=== PATIENT | female | born 1985 | race African-American/Black ===

== ENCOUNTER → 2017-03-23 | Outpatient (CLI) | payer MEDICAID | END | disposition home or self-care (01) | LOC: US 11:00 | DX: O26.892 Other specified pregnancy related conditions, second trimester (principal); G93.89 Other specified disorders of brain; Z3A.19 19 weeks gestation of pregnancy ==

== ENCOUNTER 2017-04-12 14:12 | Emergency (ER) | payer MEDICAID ==
[~2017-04-12] VITALS: Ht 160 cm; Wt 108.0 kg
[2017-04-12 15:09] LABS: BILIRUBIN NEGATIVE (NEGATIVE); BLOOD NEGATIVE (NEGATIVE); CLARITY CLEAR (CLEAR); COLOR YELLOW (YELLOW); GLUCOSE NEGATIVE (NEGATIVE); KETONE NEGATIVE (NEGATIVE); LEUKO ESTERASE 2+ (NEGATIVE); NITRITE NEGATIVE (NEGATIVE); PH 6.5 (5.0-9.0); SPECIFIC GRAVITY <= 1.005 (1.005-1.030); UROBILINOGEN 0.2 E.U./dl (0.2-1.0)
[2017-04-12 15:20] LABS: BACTERIA 3+; EPITHELIAL CELLS 16-20; RBC 0-2 rbc/hpf (0-2)
[2017-04-12] MEDS ORDERED: AMINOPHYLLIN200 MG PO (15:39)
== END 2017-04-12 22:05 | disposition home or self-care (01) ==
LOC: ED 14:12
PROVIDERS: Physician Assistant
DX: O23.42 Unspecified infection of urinary tract in pregnancy, second trimester (principal); O99.332 Smoking (tobacco) complicating pregnancy, second trimester; F17.200 Nicotine dependence, unspecified, uncomplicated; Z3A.20 20 weeks gestation of pregnancy

== ENCOUNTER 2017-04-14 16:18 | Emergency (ER) | payer MEDICAID ==
[~2017-04-14] VITALS: Ht 162.5 cm; Wt 108.0 kg
[~2017-04-14 16:18] MED LIST: AMINOPHYLLIN200 MG PO
[2017-04-14 16:59] LABS: BILIRUBIN NEGATIVE (NEGATIVE); BLOOD NEGATIVE (NEGATIVE); CLARITY CLEAR (CLEAR); COLOR YELLOW (YELLOW); GLUCOSE NEGATIVE (NEGATIVE); KETONE TRACE (NEGATIVE); LEUKO ESTERASE 2+ (NEGATIVE); NITRITE NEGATIVE (NEGATIVE); SPECIFIC GRAVITY 1.025 (1.005-1.030); UROBILINOGEN 0.2 E.U./dl (0.2-1.0)
[2017-04-14 17:13] LABS: BACTERIA 1+; EPITHELIAL CELLS 35-40
[2017-04-14] MEDS ORDERED: GYNE-LOTRIMIN21 GM V (17:55)
== END 2017-04-14 17:57 | disposition home or self-care (01) ==
LOC: ED 16:18
PROVIDERS: Physician Assistant
DX: O98.812 Other maternal infectious and parasitic diseases complicating pregnancy, second trimester (principal); O99.332 Smoking (tobacco) complicating pregnancy, second trimester; F17.200 Nicotine dependence, unspecified, uncomplicated; Z3A.22 22 weeks gestation of pregnancy